=== PATIENT | female | born 1970 | race Two or more races ===

== ENCOUNTER 2023-06-20 09:23 | Inpatient (IN) | payer MEDICAID, OTHER ==
[~2023-06-20] VITALS: Ht 157.5 cm; Wt 63.2 kg
[2023-06-20] MEDS ORDERED: ACETAMINOPHEN 500 MG TAB PO ONE (09:45)
[2023-06-20] MEDS ORDERED: DexAMETHasone SOD PHOS 10MG/1ML VIAL INJ IM ONE (10:30)
[2023-06-20] MEDS ORDERED: KETOROLAC TROMETH 60MG/2ML VIAL IM ONE (10:30)
[2023-06-20] MEDS ORDERED: LIDOCAINE 5% TOPICAL PATCH TOP ONE (10:30)
[2023-06-20] MEDS ORDERED: SODIUM CHLORIDE 0.9% 1,000 ML IV ONE (11:45)
[2023-06-20] MEDS ORDERED: cefTRIAXone 1GM/50ML D5W 50 ML IV ONE (12:00)
[2023-06-20 12:05] LABS: Urine Bacteria NONE SEEN /hpf (None Seen); Urine Blood Negative /uL (Negative); Urine Clarity Clear (Clear); Urine Color Yellow (Yellow); Urine Protein, UAD 1+ (Negative); Urine Specific Gravity 1.017 (1.001-1.035); Urine Urobilinogen Normal (Negative); Urine WBC 1 /hpf (0 - 5); Urine pH 8.5 (5.0-8.0)
[2023-06-20 13:17] LABS: Alanine Aminotransferase 16 U/L (7-40); Alkaline Phosphatase 93 U/L (46-116); Anion Gap 6.6 (5-15); Aspartate Aminotransferase 13 U/L (13-40); BUN/Creatinine Ratio 12.5 (10.0-20.0); Blood Urea Nitrogen 6 mg/dL (9-23); Carbon Dioxide 21.4 mmol/L (20-30); Chloride 109 mmol/L (98-107); Glucose 130 mg/dL (74-106); Potassium 3.6 mmol/L (3.5-5.1); Sodium 137 mmol/L (136-145)
[2023-06-20 13:18] LABS: Albumin 3.8 g/dL (3.2-4.8); Bilirubin, Total 0.7 mg/dL (0.2-1.0)
[2023-06-20 13:53] LABS: Basophils # (auto) 0 10 ^3/uL (0-0.2); Basophils % (auto) 0.2 % (0.0-2.0); Eosinophils # (auto) 0 10 ^3/uL (0-0.8); Hematocrit 33.2 % (36.0-46.0); Lymphocytes # (auto) 0.7 10 ^3/uL (0.4-5.4); Lymphocytes % (auto) 5.3 % (10.0-50.0); Mean Corpuscular Hemoglobin 30.4 pg (28.0-32.0); Mean Corpuscular Volume 91.9 fL (80.0-100.0); Monocytes # (auto) 0.4 10 ^3/uL (0-1.3); Monocytes % (auto) 2.9 % (0.0-12.0); Neutrophils # (auto) 12.2 10 ^3/uL (1.6-8.6); Neutrophils % (auto) 91.6 % (37.0-80.0); Red Blood Cells 3.62 10^6/uL (4.0-5.20); Red Cell Distribution Width 13.7 % (11.8-14.3); White Blood Cell 13.3 10^3/uL (4.4-10.8)
[2023-06-20] MEDS ORDERED: SOD CHL 0.45% 1,000 ML IV ONE (14:00)
[2023-06-20 14:17] LABS: Rapid Strep A Screen-Throat Negative
[2023-06-20 14:30] LABS: COVID19 ANTIGEN SOFIA FIA NEGATIVE (NEGATIVE); Rapid Influenza A Negative (Negative); Rapid Influenza B Negative (Negative)
[2023-06-20] MEDS ORDERED: cefTRIAXone SOD 1,000 MG VL IM ONE (17:15)
[2023-06-20] MEDS ORDERED: cefTRIAXone SOD 1,000 MG VL ONE (17:50)
[2023-06-20] MEDS ORDERED: LIDOCAINE 1% HCL (LOCAL ANESTH.) INJ 20ML MDV ID ONE (18:00)
[2023-06-20 19:01] VITALS: PULSE 68; RESP 14; O2SAT 97
[2023-06-20 19:07] LABS: Hematocrit 37.1 % (36.0-46.0); Hemoglobin 12.1 g/dL (12.2-16.2); Mean Corpuscular Hgb Conc. 32.7 g/dL (32.0-36.0); Mean Corpuscular Volume 91.8 fL (80.0-100.0); Red Blood Cells 4.04 10^6/uL (4.0-5.20); Red Cell Distribution Width 13.7 % (11.8-14.3); White Blood Cell 12.5 10^3/uL (4.4-10.8)
[2023-06-20 19:09] LABS: Basophils % (manual) 0 (0.0-2.0); Blast Cells 0; Eosinophils % (manual) 0 (0-7); Metamyelocytes % 0; Myelocytes % 0; Promyelocytes % 0; Reactive Lymphocytes 0
[2023-06-20] MEDS ORDERED: NITROGLYCERIN 0.4 MG SL TAB SL PRN (19:15)
[2023-06-20] MEDS ORDERED: ONDANSETRON HCL 4 MG/2 ML VIAL IV PRN (19:15)
[2023-06-20] MEDS ORDERED: ACETAMINOPHEN 325 MG TAB PO PRN (19:15)
[2023-06-20] MEDS ORDERED: VANCOMYCIN PER PHARMACY 0 MG IV SCH (19:15)
[2023-06-20] MEDS ORDERED: MORPHINE SULFATE INJ 2 MG/ml SYRG IV PRN (19:15)
[2023-06-20 19:39] LABS: Band Neutrophils % (manual) 2; Lymphocytes % (manual) 5 (10.0-50.0); Monocytes % (manual) 2 (0-12); Platelet Estimate Adequate; RBC Morphology Normal
[2023-06-20] MEDS ORDERED: VANCOMYCIN 1GM/250ML 250 ML IV SCH (20:00)
[2023-06-20] MEDS: DOCUSATE SOD 100 MG CAP PO SCH (22:16)
[2023-06-20] MEDS: metroNIDAZOLE 500MG/100ML 100 ML IV SCH (22:17)
[2023-06-20] MEDS: SODIUM CHLORIDE 0.9% 1,000 ML IV SCH (22:18)
[2023-06-21] MEDS: SODIUM CHLORIDE 0.9% 1,000 ML IV SCH ×4 (02:12→21:55)
[2023-06-21 02:45] VITALS: PULSE 69; RESP 16; O2SAT 95
[2023-06-21 05:51] LABS: Basophils # (auto) 0 10 ^3/uL (0-0.2); Basophils % (auto) 0.1 % (0.0-2.0); Eosinophils # (auto) 0 10 ^3/uL (0-0.8); Hematocrit 33.2 % (36.0-46.0); Hemoglobin 11.2 g/dL (12.2-16.2); Lymphocytes # (auto) 0.7 10 ^3/uL (0.4-5.4); Lymphocytes % (auto) 7.2 % (10.0-50.0); Mean Corpuscular Hemoglobin 31.1 pg (28.0-32.0); Mean Corpuscular Hgb Conc. 33.8 g/dL (32.0-36.0); Mean Corpuscular Volume 91.9 fL (80.0-100.0); Monocytes # (auto) 0.5 10 ^3/uL (0-1.3); Monocytes % (auto) 4.7 % (0.0-12.0); Red Blood Cells 3.61 10^6/uL (4.0-5.20); Red Cell Distribution Width 13.9 % (11.8-14.3); White Blood Cell 10.2 10^3/uL (4.4-10.8)
[2023-06-21 06:07] LABS: Alanine Aminotransferase 24 U/L (7-40); Albumin 3.9 g/dL (3.2-4.8); Alkaline Phosphatase 88 U/L (46-116); Anion Gap 6.3 (5-15); Aspartate Aminotransferase 18 U/L (13-40); BUN/Creatinine Ratio 22.2 (10.0-20.0); Bilirubin, Total 0.5 mg/dL (0.2-1.0); Blood Urea Nitrogen 8 mg/dL (9-23); Calcium 8.4 mg/dL (8.7-10.4); Carbon Dioxide 21.7 mmol/L (20-30); Chloride 113 mmol/L (98-107); Potassium 3.7 mmol/L (3.5-5.1); Sodium 141 mmol/L (136-145); Total Protein 6.1 g/dL (5.7-8.2)
[2023-06-21] MEDS: metroNIDAZOLE 500MG/100ML 100 ML IV SCH ×3 (06:13→23:24)
[2023-06-21 06:26] LABS: Glucose 124 mg/dL (74-106)
[2023-06-21 08:00] VITALS: PULSE 69; RESP 20; O2SAT 97
[2023-06-21] MEDS: cefTRIAXone 1GM/50ML D5W 50 ML IV SCH (11:21)
[2023-06-21] MEDS: DOCUSATE SOD 100 MG CAP PO SCH ×2 (11:21→23:29)
[2023-06-21 20:30] VITALS: PULSE 74; RESP 14; O2SAT 97
[2023-06-21 22:34] VITALS: BP 107/48; PULSE 71; RESP 20; TEMP 98.5; O2SAT 96
[2023-06-22 05:00] VITALS: BP 121/41; PULSE 77; RESP 20; TEMP 97.9; O2SAT 94
[2023-06-22] MEDS: SODIUM CHLORIDE 0.9% 1,000 ML IV SCH ×2 (06:13→11:30)
[2023-06-22] MEDS: metroNIDAZOLE 500MG/100ML 100 ML IV SCH ×2 (06:14→14:48)
[2023-06-22 06:24] LABS: Basophils # (auto) 0 10 ^3/uL (0-0.2); Basophils % (auto) 0.4 % (0.0-2.0); Eosinophils # (auto) 0 10 ^3/uL (0-0.8); Eosinophils % (auto) 0.7 % (0.0-7.0); Lymphocytes # (auto) 1.9 10 ^3/uL (0.4-5.4); Lymphocytes % (auto) 28.1 % (10.0-50.0); Mean Corpuscular Hemoglobin 30.7 pg (28.0-32.0); Mean Corpuscular Hgb Conc. 33.2 g/dL (32.0-36.0); Mean Corpuscular Volume 92.3 fL (80.0-100.0); Monocytes # (auto) 0.5 10 ^3/uL (0-1.3); Monocytes % (auto) 7.4 % (0.0-12.0); Neutrophils # (auto) 4.4 10 ^3/uL (1.6-8.6); Neutrophils % (auto) 63.4 % (37.0-80.0); Nucleated Red Blood Cells % 0.1 %; Red Blood Cells 3.58 10^6/uL (4.0-5.20); Red Cell Distribution Width 13.9 % (11.8-14.3); White Blood Cell 6.9 10^3/uL (4.4-10.8)
[2023-06-22 06:46] LABS: Anion Gap 5.7 (5-15); Carbon Dioxide 23.3 mmol/L (20-30); Chloride 113 mmol/L (98-107); Potassium 3.9 mmol/L (3.5-5.1); Sodium 142 mmol/L (136-145)
[2023-06-22 06:47] LABS: Calcium 8.7 mg/dL (8.7-10.4)
[2023-06-22 06:52] LABS: Blood Urea Nitrogen 6 mg/dL (9-23); Glucose 95 mg/dL (74-106)
[2023-06-22 08:00] VITALS: PULSE 59; RESP 18; O2SAT 95
[2023-06-22 09:19] VITALS: BP 97/49; PULSE 66; RESP 20; TEMP 98; O2SAT 99
[2023-06-22] MEDS: DOCUSATE SOD 100 MG CAP PO SCH (10:00)
[2023-06-22] MEDS: cefTRIAXone 1GM/50ML D5W 50 ML IV SCH (11:30)
[2023-06-22 12:41] VITALS: BP 94/42; PULSE 68; RESP 20; TEMP 97.9; O2SAT 96
[2023-06-22] MEDS ORDERED: LACTULOSE 20Gm/30ML SOLN PO ONE (14:45)
[2023-06-22] MEDS ORDERED: AMOX500T86 PO (14:53)
[2023-06-22 16:24] VITALS: TEMP 36.6
[2023-06-22 16:47] VITALS: BP 115/48; PULSE 68; RESP 18; TEMP 98; O2SAT 95
[2023-06-23] MEDS ORDERED: LACTULOSE 20Gm/30ML SOLN PO SCH (10:00)
[2023-06-26 10:23] LABS: Hepatitis B Surface Antigen Negative (Negative)
[2023-06-26 10:45] LABS: Hepatitis C Antibody Negative (Negative)
== END 2023-06-22 18:32 | disposition home or self-care (01) | DRG 251 ==
LOC: ER 09:23 → TELE 19:20 → TELE-WESTW 06-21 21:45
PROVIDERS: ADMIT Nurse Practitioner Family; ATTEND Internal Medicine Pulmonary Disease
DX: R10.9 Unspecified abdominal pain (principal); I10 Essential (primary) hypertension; J03.90 Acute tonsillitis, unspecified; J06.9 Acute upper respiratory infection, unspecified; K64.9 Unspecified hemorrhoids; Z20.822 Contact with and (suspected) exposure to COVID-19
CPT/HCPCS: 36415; 71045; 74176; 80048; 80053; 81001; 83036; 83605; 84443; 85007; 85025; 85027; 86803; 87040; 87070; 87086; 87340; 87426; 87804; 87880; 96361; 96365; 96372; G0378; J0696; J1100; J1885; J3490

== ENCOUNTER 2023-08-02 18:44 | Emergency (ER) | payer MEDICAID ==
[~2023-08-02] VITALS: Ht 160 cm; Wt 140.0 kg
[~2023-08-02 18:44] MED LIST: AMOX500T86 PO
[2023-08-02 20:10] VITALS: BP 132/63; PULSE 68; RESP 18; O2SAT 98
[2023-08-02 21:29] LABS: Urine Bacteria NONE SEEN /hpf (None Seen); Urine Blood Negative /uL (Negative); Urine Clarity Clear (Clear); Urine Color Colorless (Yellow); Urine Protein, UAD Negative (Negative); Urine Urobilinogen Normal (Negative); Urine WBC 1 /hpf (0 - 5); Urine pH 5.5 (5.0-8.0)
[2023-08-02 21:32] LABS: Basophils # (auto) 0 10 ^3/uL (0-0.2); Basophils % (auto) 0.3 % (0.0-2.0); Eosinophils # (auto) 0.1 10 ^3/uL (0-0.8); Eosinophils % (auto) 0.7 % (0.0-7.0); Hematocrit 41.4 % (36.0-46.0); Hemoglobin 13.7 g/dL (12.2-16.2); Lymphocytes # (auto) 1.6 10 ^3/uL (0.4-5.4); Lymphocytes % (auto) 21.3 % (10.0-50.0); Mean Corpuscular Hgb Conc. 33.2 g/dL (32.0-36.0); Mean Corpuscular Volume 93.5 fL (80.0-100.0); Monocytes # (auto) 0.3 10 ^3/uL (0-1.3); Monocytes % (auto) 4.5 % (0.0-12.0); Neutrophils # (auto) 5.4 10 ^3/uL (1.6-8.6); Neutrophils % (auto) 73.2 % (37.0-80.0); Nucleated Red Blood Cells % 0.1 %; Red Blood Cells 4.43 10^6/uL (4.0-5.20); Red Cell Distribution Width 15.3 % (11.8-14.3); White Blood Cell 7.4 10^3/uL (4.4-10.8)
[2023-08-02 21:46] LABS: Alanine Aminotransferase 21 U/L (7-40); Albumin 4.6 g/dL (3.2-4.8); Alkaline Phosphatase 83 U/L (46-116); Anion Gap 5 (5-15); Aspartate Aminotransferase 9 U/L (13-40); BUN/Creatinine Ratio 13.2 (10.0-20.0); Blood Urea Nitrogen 7 mg/dL (9-23); Calcium 9.4 mg/dL (8.5-10.1); Carbon Dioxide 27 mmol/L (20-30); Chloride 107 mmol/L (98-107); Glucose 100 mg/dL (74-106); Potassium 4.1 mmol/L (3.5-5.1); Sodium 139 mmol/L (136-145)
[2023-08-02 21:47] LABS: Bilirubin, Total 0.7 mg/dL (0.2-1.0); Total Protein 7.2 g/dL (5.7-8.2)
[2023-08-02] MEDS ORDERED: LACT10SO3 PO (22:56)
== END 2023-08-02 23:00 | disposition home or self-care (01) ==
LOC: ER 18:44
DX: K59.00 Constipation, unspecified (principal); Z79.899 Other long term (current) drug therapy
CPT/HCPCS: 36415; 74176; 80053; 81001; 83690; 85025